=== PATIENT | male | born 1960 | race Caucasian/White ===

== ENCOUNTER 2020-05-20 12:39 | Emergency (ER) | payer OTHER, MEDICARE, MEDICAID, SELFPAY ==
--- NOTE | ~2020-05-20 | CT_ITS ---
CT head for stroke CLINICAL INFORMATION: Right arm weakness. COMPARISON: No prior CT scan available for comparison. TECHNIQUE: Department standard protocol. This CT examination was performed using dose optimization techniques as appropriate, variously including the following: *Automated exposure control *Adjustment of mA and/or kV according to patient size (this includes techniques or standardized protocols for targeted exams where dose is matched to indication/reason for exam; i.e. extremities or head) *Use of iterative reconstruction technique DLP: 735 mGy-cm FINDINGS: CEREBRAL HEMISPHERES: There is no evidence of intra-axial or extra-axial mass, hemorrhage or acute infarct. BRAIN PARENCHYMA: Deep white matter and paraventricular hypoattenuation, nonspecific; however, in this patient's age group most likely changes secondary to chronic ischemia/microvascular angiopathy. SUBDURAL SPACE: No bleed. BASAL GANGLIA AND PINEAL GLAND: Bilateral calcifications symmetric questionable significance. VENTRICLES: Symmetric and normal in size. CEREBELLUM AND BRAINSTEM: No space-occupying mass, hemorrhage or acute infarct. CEREBELLOPONTINE ANGLES: No lesion found. ORBITS: No intraorbital mass. VESSELS: Unremarkable SKULL BASE: Unremarkable INCLUDED SINUSES AT SKULL BASE: Clear SKULL AND SKIN: No fracture or bone lesion found. CT/CT head for stroke IMPRESSION: Asymmetric dense left MCA concerning for possible thrombosis versus vascular calcification. Patient is scheduled for CT angiogram which will help for further delineate this. Deep white matter and paraventricular hypoattenuation most likely chronic microvascular angiopathy. No intracranial bleed. This critical result was discussed with Dr. Goldman by telephone at 05/20/2020 1:24 PM and it was ascertained that the content and urgency of the report was understood at the time of direct communication.
--- NOTE | ~2020-05-20 | XR_ITS ---
EXAMINATION: XR CHEST CLINICAL INFORMATION: 59-year-old male patient with weakness. COMPARISON: Last chest x-rays on 10/19/2015 and 05/17/2017. TECHNIQUE: AP semierect view of the chest was obtained. The time of examination was 2:02 PM. FINDINGS: The heart is normal in size. There is mild uncoiling of the thoracic aorta as before. Pulmonary vascularity is normal. The lungs are clear showing no evidence of acute pulmonary parenchymal or pleural disease. XR/XR chest 1V IMPRESSION: No consolidating pneumonia.
--- NOTE | ~2020-05-20 | CT_ITS ---
EXAMINATION: CT ANGIOGRAM HEAD CT ANGIOGRAM NECK CLINICAL INFORMATION: Large vessel occlusion. Right arm weakness. COMPARISON: CT head from 05/20/2020. TECHNIQUE: Initial noncontrast manager intensive care imaging of the head and neck was performed. Comparison is made with noncontrast head CT from earlier today. Test bolus sequences followed by intravenous administration 75 mL of Omnipaque 350. Helical imaging was performed in the axial plane from the aortic arch to the skull vertex. Delayed postcontrast imaging of the head was also performed. The data was processed at the nuclear technologist's workstation for generation of MIP sequences. Angled MIPs and volume rendered reformatted images were also generated at an offline 3D workstation. Stenoses are assessed in accordance with NASCET criteria unless otherwise indicated. DLP: 1538 mGy-cm FINDINGS: CT Head: Small region of lost molina-white matter differentiation within the left precentral gyrus. There is no evidence of acute intracranial hemorrhage. Bilateral basal ganglia mineralization. A few foci of hypoattenuation in the periventricular and deep white matter are consistent with mild microangiopathy. Molina-white matter differentiation is preserved. Proportional prominence of the ventricles and sulcal spaces. No evidence for obstructive hydrocephalus. No abnormal mass effect or midline shift. No extra-axial fluid collections. No pathologic intra-axial enhancement or regional oligemia. No acute soft tissue or osseous abnormalities. Moderate right nasal septal deviation. Mild mucosal thickening of the paranasal sinuses. The patient is edentulous. The mastoid air cells and middle ear cavities are clear. CT Neck: The thyroid gland and remaining cervical soft tissues are within normal limits. No significant abnormalities of the cervical spine. CT Upper Chest: The visualized lung apices and upper mediastinum are within normal limits. Neck CTA: Aortic Arch: Normal contour and caliber. Two vessel branching pattern of the arch with left common carotid artery arising from the brachiocephalic trunk. Great Vessel Origins: No significant stenosis of the branch origins. Right Common Carotid Artery: Normal opacification without focal stenosis or occlusion. Cervical Right Internal Carotid Artery: Mild calcific atherosclerotic disease of the carotid bulb and proximal internal carotid artery without flow-limiting stenosis. Left Common and Internal Carotid Arteries: Normal opacification of the proximal and mid common carotid artery. Lipid rich atheromatous disease of the carotid bulb and proximal internal carotid artery causes complete occlusion of the proximal left internal carotid artery. The remainder of the cervical segment of the left ICA is nonopacified. Cervical Right Vertebral Artery: Co-dominant. Normal opacification without focal stenosis or occlusion. Cervical Left Vertebral Artery: Co-dominant. Normal opacification without focal stenosis or occlusion. Brain CTA: Intracranial Internal Carotid Arteries: The petrous and cavernous segments of the left ICA remain nonopacified. Partial reconstitution of the paraophthalmic and cervical segments of the left ICA. Normal contrast opacification of the petrous, cavernous, paraophthalmic, and supraclinoid segments of the right internal carotid artery. There is opacification of the bilateral proximal ophthalmic arteries. Right Anterior Cerebral Artery: Normal A1 segment. Normal opacification of the distal segments of the NELLIE. Left Anterior Cerebral Artery: Normal A1 segment. Normal opacification of the distal segments of the NELLIE. Anterior Communicating Artery: Normal. Right Middle Cerebral Artery: Normal opacification of the M1 segment of the MCA without focal stenosis or occlusion. Normal arborization of the distal segments. Left Middle Cerebral Artery: Normal opacification of the M1 segment of the MCA without focal stenosis or occlusion. There is occlusion of the distal M2 and M3 branch of the left MCA (image [id number]). Right Vertebral Artery: Normal opacification of the V4 segment. Normal opacification of the proximal segments of the posterior inferior cerebellar artery. Left Vertebral Artery: Normal opacification of the V4 segment. Normal opacification of the proximal segments of the posterior inferior cerebellar artery. Basilar Artery: Normal opacification without focal stenosis or occlusion. Normal appearance of the proximal superior cerebellar arteries. Right Posterior Cerebral Artery: Normal P1 segment. Normal posterior communicating artery. Normal opacification of the distal segments of the SWITCH REPAIRER. Left Posterior Cerebral Artery: Normal P1 segment. Normal opacification of the distal segments of the SWITCH REPAIRER. Normal opacification of the superior sagittal, straight, transverse, and sigmoid sinuses. CT/CT angio head neck stroke IMPRESSION: 1. Proximal occlusion of the left internal carotid artery. Reconstitution of the supraclinoid segment, likely from filling across the anterior communicating artery. 2. There is also occlusion of a distal M2 and M3 branch of the left MCA. 3. Small region of lost molina-white matter differentiation within the left precentral gyrus. No evidence of acute intracranial hemorrhage. Mild underlying microangiopathy. This critical result was discussed with Dr. Goldman at 13:45 on 05/20/2020 and it was ascertained that the content and urgency of the report was understood at the time of direct communication.
[2020-05-20 12:54] LABS: Glucose, Whole Blood 177 mg/dL (60-115)
--- NOTE | 2020-05-20 12:59 | ECG_ITS ---
Test Reason : STROKE Blood Pressure : / mmHG Vent. Rate : 081 BPM Atrial Rate : 081 BPM P-R Int : 168 ms QRS Dur : 086 ms QT Int : 368 ms P-R-T Axes : 036 017 014 degrees QTc Int : 427 ms Normal sinus rhythm Possible Left atrial enlargement Borderline ECG No significant changes when compared with the previous EKG of 17 may 2017 Referred By: Rojas Goldman Electronically Signed By:BROCK ROSE
[2020-05-20 13:06] VITALS: BP 198/117; PULSE 82; RESP 18; TEMP 36.8; O2SAT 99; BMI 23.1
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
--- NOTE | 2020-05-20 13:32 | PC.NURSE ---
called the carrie agronomy professor per dr padilla request
[2020-05-20] MEDS: iohexoL 350 MG/ML 100 ML INFUS..BTL IV (13:47)
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
[2020-05-20 13:51] LABS: MANUAL DIFF FLAG NO
[2020-05-20 13:53] LABS: Basophils Percent Auto 0.3 % (0-2); Eosinophils Absolute Auto 0.1 X10*3/uL (0.0-0.4); Eosinophils Percent Auto 0.8 % (0-4); Hematocrit 44.7 % (42-52); Hemoglobin 15.4 g/dl (14.0-18.0); Imm Gran Abs Auto 0.02 X10*3/uL (0.00-0.03); Imm Gran Pct Auto 0.3 % (0.0-0.4); Lymphocytes Absolute Auto 2.3 X10*3/uL (1.2-4.9); Lymphocytes Percent Auto 29.2 % (20-40); Mean Corpuscular HGB Conc 34.5 g/dl (31.0-36.0); Mean Corpuscular Hemoglobin 32.8 pg (27.0-33.0); Mean Corpuscular Volume 95.3 fL (80-98); Mean Platelet Volume 9.8 fL (9.4-12.4); Monocytes Absolute Auto 0.5 X10*3/uL (0.1-1.2); Monocytes Percent Auto 6.3 % (2-11); Neutrophils Absolute Auto 4.9 X10*3/uL (2.0-8.3); Neutrophils Percent Auto 63.1 % (45-73); Platelet Count 229 X10*3/uL (160-400); Red Blood Count 4.69 X10*6/uL (4.60-5.80); Red Cell Distribution Width 13.9 % (11.0-16.0); White Blood Count 7.7 X10*3/uL (4.8-10.8)
[2020-05-20 13:57] LABS: INTERNATIONAL NORM RATIO 0.9 (0.9-1.1); Prothrombin Time 11.2 SEC (10.8-13.0)
[2020-05-20 14:00] LABS: Partial Thromboplastin Time 36.2 SEC (24.1-38.0)
--- NOTE | 2020-05-20 14:00 | PC.NURSE ---
BP REMAINS ELEVATED, MD AWARE
[2020-05-20 14:01] LABS: Stroke Lab Use COMPLETE
[2020-05-20 14:16] LABS: Troponin-I High Sensitivity 4.9 ng/L (<3.5-35.0)
[2020-05-20 14:17] LABS: Alanine Aminotransferase 15 U/L (0-40); Albumin Level 4.8 g/dL (3.5-5.0); Alkaline Phosphatase 107 U/L (39-117); Anion Gap 13 (12-20); Aspartate Amino Transferase 15 U/L (5-37); Bilirubin Direct 0.3 mg/dL (0.0-0.5); Bilirubin Total 0.9 mg/dL (0.0-1.0); Blood Urea Nitrogen 12 mg/dL (9-16); Calcium 9.3 mg/dL (8.4-10.2); Carbon Dioxide 29 mmol/L (22-29); Chloride 99 mmol/L (96-108); Creatinine Clr Calc Pharmacy 76.4; Estimated Glomerular Filt Rate > 60; Glucose Random 195 mg/dL (60-115); Magnesium 2.2 mg/dL (1.6-2.6); Phosphorus 2.7 mg/dL (2.7-4.5); Potassium 4.3 mmol/L (3.3-5.1); Sodium 137 mmol/L (135-145); Total Protein 7.8 g/dL (6.5-8.0)
[2020-05-20 14:19] LABS: Ethanol < 10 mg/dL
[2020-05-20 14:22] LABS: Glucose Random 196 mg/dL (60-115)
[2020-05-20 14:24] VITALS: BP 210/120; PULSE 82
[2020-05-20 14:35] LABS: Thyroid Stimulating Hormone 1.99 uIU/mL (0.32-4.0)
[2020-05-20 14:42] LABS: Prothrombin Time Whole Bld POC 11.5 sec (11.1-13.5)
--- NOTE | 2020-05-20 14:44 | PC.NURSE ---
REPORT GIVEN TO [facility] RN. NO ISSUES UPON TRANSFER VIA EMS.
[2020-05-20 15:46] LABS: IDNOW Serial# 9DD0AD1C
[2020-05-20 15:47] LABS: COVID-19 Test Negative (Negative)
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
== END 2020-05-20 14:35 | disposition short-term general hospital (02) ==
PROVIDERS: Emergency Provider Emergency Medicine Emergency Medical Services; PCP Internal Medicine
DX: I63.9 Cerebral infarction, unspecified (principal); I65.22 Occlusion and stenosis of left carotid artery; R29.711 NIHSS score 11; Z20.822 Contact with and (suspected) exposure to COVID-19; Z87.891 Personal history of nicotine dependence; Z79.899 Other long term (current) drug therapy
CPT/HCPCS: 36415; 70450; 70496; 70498; 71045; 80048; 80076; 80320; 82550; 82947; 83735; 84100; 84443; 84484; 85025; 85610; 85730; 87635; 93005; 96360; 99285; Q9967

== ENCOUNTER 2020-06-29 09:18 | Outpatient (REF) | payer MEDICARE, MEDICAID, SELFPAY ==
[2020-06-29 10:16] LABS: MANUAL DIFF FLAG NO
[2020-06-29 10:32] LABS: Basophils Percent Auto 0.3 % (0-2); Eosinophils Absolute Auto 0.1 X10*3/uL (0.0-0.4); Eosinophils Percent Auto 1.4 % (0-4); Hematocrit 39.9 % (42-52); Hemoglobin 13.7 g/dl (14.0-18.0); Imm Gran Abs Auto 0.02 X10*3/uL (0.00-0.03); Imm Gran Pct Auto 0.2 % (0.0-0.4); Lymphocytes Percent Auto 39.4 % (20-40); Mean Corpuscular HGB Conc 34.3 g/dl (31.0-36.0); Mean Corpuscular Volume 93.2 fL (80-98); Mean Platelet Volume 10.1 fL (9.4-12.4); Monocytes Absolute Auto 0.9 X10*3/uL (0.1-1.2); Monocytes Percent Auto 8.9 % (2-11); Neutrophils Absolute Auto 5.1 X10*3/uL (2.0-8.3); Neutrophils Percent Auto 49.8 % (45-73); Platelet Count 228 X10*3/uL (160-400); Red Blood Count 4.28 X10*6/uL (4.60-5.80); Red Cell Distribution Width 13.4 % (11.0-16.0); White Blood Count 10.2 X10*3/uL (4.8-10.8)
[2020-06-29 10:33] LABS: Alanine Aminotransferase 44 U/L (0-40); Albumin Level 4.4 g/dL (3.5-5.0); Alkaline Phosphatase 165 U/L (39-117); Anion Gap 10 (12-20); Aspartate Amino Transferase 21 U/L (5-37); Bilirubin Total 1.1 mg/dL (0.0-1.0); Blood Urea Nitrogen 14 mg/dL (9-16); Calcium 9.4 mg/dL (8.4-10.2); Carbon Dioxide 35 mmol/L (22-29); Chloride 99 mmol/L (96-108); Cholesterol 112 mg/dL; Estimated Glomerular Filt Rate 60; Glucose Fasting 257 mg/dL (60-99); HDL Cholesterol 53 mg/dL; LDL Cholesterol Calculated 48 mg/dl; Potassium 4.4 mmol/L (3.3-5.1); Sodium 140 mmol/L (135-145); Total Protein 7.1 g/dL (6.5-8.0); Triglycerides 58 mg/dL
[2020-06-29 10:46] LABS: Glucose Urine UA >=1000 MG/DL (NEG); Leukocyte Esterase Urine NEG (NEG); Nitrite Urine NEG (NEG); Urine Blood TRACE (NEG); Urine Ketones NEG (NEG); Urine Protein NEG (NEG-TRACE)
[2020-06-29 10:49] LABS: Appearance Urine CLEAR; Color Urine YELLOW
[2020-06-29 10:56] LABS: TSH reflex Free T4 1.22 uIU/mL (0.32-4.0)
[2020-06-29 11:29] LABS: RBC Urine 0-2 /HPF (0); WBC Urine 0 /HPF (0-4)
[2020-06-29 11:39] LABS: Erythrocyte Sedimentation Rate 6 MM/HR (0-15)
[2020-06-29 11:43] LABS: Creatinine Urine 47.19 mg/dL
== END 2020-06-29 09:19 | disposition home or self-care (01) ==
LOC: HO.LAB 09:18
PROVIDERS: PCP Internal Medicine; Visit Provider Psychiatry & Neurology Neurology
DX: I63.9 Cerebral infarction, unspecified (principal); I10 Essential (primary) hypertension; E11.9 Type 2 diabetes mellitus without complications; K21.9 Gastro-esophageal reflux disease without esophagitis; E78.00 Pure hypercholesterolemia, unspecified; M19.90 Unspecified osteoarthritis, unspecified site; M25.512 Pain in left shoulder; M51.36 Other intervertebral disc degeneration, lumbar region
CPT/HCPCS: 36415; 80053; 80061; 81001; 82043; 84443; 85025; 85652

== ENCOUNTER 2020-07-03 09:12 | Outpatient (REF) | payer MEDICARE, MEDICAID, SELFPAY ==
--- NOTE | ~2020-07-03 | CT_ITS ---
EXAMINATION: CT ANGIOGRAM OF THE HEAD CT ANGIOGRAM OF THE NECK CLINICAL INFORMATION: Prior cerebral infarct. COMPARISON: CTA of the head and neck and CT scan of the head 05/20/2020. TECHNIQUE: A noncontrast CT scan of the head was obtained. Test bolus series followed by intravenous administration 70 mL of Omnipaque 350. Helical imaging was performed in the axial plane from the mediastinum to the skull vertex. A delayed postcontrast CT scan of the head was also obtained. The degree of stenosis is based off NASCET criteria. The data was processed at the staff nuclear medicine technologist workstation for generation of MIP images. Three-dimensional volume rendered reformatted images were also generated at an offline 3-D workstation. This CT examination was performed using dose optimization techniques as appropriate, variously including the following: *Automated exposure control *Adjustment of mA and/or kV according to patient size (this includes techniques or standardized protocols for targeted exams where dose is matched to indication/reason for exam; i.e. extremities or head) *Use of iterative reconstruction technique DLP: 2644 mGy-cm. FINDINGS: CT Head: The study demonstrates evolution of the infarct in the left frontoparietal region. There is mild cortical enhancement, most consistent with luxury perfusion along the superior aspect of the region of infarction. There is no evidence of acute hemorrhage. There is adjacent ex-vacuo dilation of the posterior body and trigone of the left lateral ventricle. No new territorial infarcts are demonstrated. There is no evidence of hemorrhage elsewhere. No abnormal mass-effect or midline shift is seen. Elsewhere, urbina to white matter differentiation is well preserved. No extra-axial fluid collections are identified. There is no other abnormal enhancement. The ventricles and sulci are slightly commensurately prominent consistent with mild diffuse volume loss. There are bilateral basal ganglia calcifications. There are a few areas of low-attenuation elsewhere within the periventricular and subcortical white matter, consistent with chronic microvascular ischemic changes. There are no acute osseous findings. The soft tissues are unremarkable. The patient is edentulous in the maxilla. A residual dental root is seen in the anterior left mandible. A torus mandibularis is seen anteriorly on the right, which is unchanged. The mastoid air cells and visualized portions of the paranasal sinuses are well-aerated. CTA Neck: The aortic arch has a classic configuration. The subclavian arteries are patent bilaterally. There are lipid-rich atheromatous changes in the left common carotid artery without significant calcification proximally. The right common carotid artery is patent. There are extensive atheromatous calcifications at the left carotid bifurcation, demonstrated on prior imaging. There is minimal atheromatous calcification on the right. The right cervical internal carotid artery is patent with uniform caliber. The study redemonstrates complete occlusion of the left cervical internal carotid artery, similar compared to prior imaging. The origins of both vertebral arteries are well seen and appear normal. The origins of both vertebral arteries are well demonstrated. The vertebral arteries are codominant, and are patent throughout their cervical course extending intradurally. Nonvascular: There are emphysematous changes in the lungs bilaterally. There is apical pleural scarring on the right. The right lobe of the thyroid gland is slightly more prominent compared to the left, but attenuation appears uniform. There is no cervical lymphadenopathy. There are no significant spondylitic changes in the cervical spine. CTA Head: No flow is demonstrated in the petrous or cavernous segments of the left internal carotid artery. There is opacification of the right internal carotid artery. There is reconstitution of flow in the supraclinoid left internal carotid artery from collateral circulation from the right side. Contrast is now noted extending distal to the region of the occlusion of the sylvian left middle cerebral artery, with improved arborization of the branches of the left middle cerebral artery. The right middle and bilateral anterior cerebral arteries demonstrate normal caliber with no evidence of focal stenosis, aneurysm or vascular malformation. There is normal arborization of the right middle cerebral artery branches. The anterior communicating artery is normal. In the posterior circulation, the vertebral arteries are codominant. The vertebral arteries intradurally have normal caliber. The basilar artery appears normal. The posterior cerebral arteries have normal caliber. The venous sinuses opacify normally. CT/CT angio head neck IMPRESSION: CT HEAD AND NECK: 1. The study demonstrates evolution of the infarct in the left frontoparietal region. There appears to be luxury perfusion changes on the current study. There is no hemorrhagic transformation. There are no new areas of territorial infarction. 2. There are emphysematous changes in the lungs. There is no cervical lymphadenopathy. CTA HEAD AND NECK: 1. The study redemonstrates complete occlusion of the cervical left internal carotid artery, with reconstitution in the left supraclinoid region from collateral vessels. 2. Contrast is now noted in the left middle cerebral artery, distal to the region of the occlusion that was demonstrated on prior imaging. 3. There are no new areas of focal stenosis, and there are no aneurysms or vascular malformations.
[2020-07-03] MEDS: iohexoL 350 MG/ML 100 ML INFUS..BTL IV (11:01)
== END 2020-07-03 09:13 | disposition home or self-care (01) ==
LOC: HO.CT 09:12
PROVIDERS: Visit Provider Psychiatry & Neurology Neurology
DX: I63.9 Cerebral infarction, unspecified (principal)
CPT/HCPCS: 70496; 70498; Q9967

== ENCOUNTER 2020-08-15 07:59 | Outpatient (RCR) | payer MEDICARE, MEDICAID, SELFPAY ==
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
== END 2021-07-22 16:05 | disposition home or self-care (01) ==
LOC: HO.SH 07:59
PROVIDERS: Visit Provider Internal Medicine
DX: R47.01 Aphasia (principal); R47.1 Dysarthria and anarthria
CPT/HCPCS: 92523

== ENCOUNTER 2020-08-17 11:00 | Outpatient (RCR) | payer MEDICARE, MEDICAID, SELFPAY ==
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
--- NOTE | 2020-09-20 13:14 | MHC.OT.DC ---
[address] [phone] F: [phone] Occupational Therapy Discharge Note Provider: Dr Mcmillan Diagnosis: Right Hemiparesis due to CVA Date of Evaluation: 07/03/20 Date of Discharge: 09/20/20 Treatments to Date: 11 Discharge Status: Improved Function Independent with HEP Patient Elected to Stop Discharge Summary: Perez was referred to OT for left UE strengthening and coordination s/p stroke. He has reported improvements every day. He still has difficulty with isolating wrist and digits with activities, but overall good use of left hand to assist w/ daily activities. He has not returned for follow up OT, but has started physical therapy. Electronically Signed By: Manisha Lopez OTR/L Please Sign and return to therapist, thank you for your referral.
== END 2020-09-20 13:00 | disposition home or self-care (01) ==
LOC: HO.OT 11:00
PROVIDERS: PCP Internal Medicine; Visit Provider Internal Medicine
DX: I69.351 Hemiplegia and hemiparesis following cerebral infarction affecting right dominant side (principal)
CPT/HCPCS: 97110; 97112; 97166; 97530

== ENCOUNTER 2020-10-01 10:00 | Outpatient (RCR) | payer OTHER, SELFPAY ==
--- NOTE | 2020-09-04 12:41 | MHC.PT.EP ---
[facility] [place] Office [place] Office [place] Office [address] Eben Lopez [address] [phone] F: [phone] F: [phone] F: [phone] F: [phone] Physical Therapy Plan of Care Date of Evaluation: Date of Surgery: Diagnosis: CVA right side Assessment: The patient arrives s/p a left CVA. He has right sided weakness in his UE and LE more pronounced in his LE. He has functional LE strength but notable decrease in coordination and movement/speed. Pt reports poor balance and poor activity tolerance. He will benefit from balance retraining, LE strength, and coordination activities to help restore PLOF. Frequency and Duration: The patient will be seen 2x/week x 4 weeks Short Term Goals: 1. Pt to be able to go from sit to stand with good trunk control for immediate standing balance. 2. Pt to be able to static stand x 2 min to demonstrate improved static balance for personal hygiene. Yarn Dry Room Worker Goals: 1. The patient to be able to negotiate community obstacles such as curbs, ramps and open spaces without LOB for 100 feet. 2. For the patient to be able to functionally move in all planes and directions without provocation of dizziness to show return to PLOF. Treatment Plan: Modalities to reduce pain, spasms and effusion. Manual therapy to restore motion and function. Therapeutic exercise to improve strength and flexibility. Neuromuscular re-education for posture and balance. Therapeutic activities to return to functional activities of daily living. Electronically signed by: Serenity Choe PT DPT Please sign and return to therapist. Thank you for your referral.
== END 2020-10-01 13:00 | disposition home or self-care (01) ==
LOC: HO.PT 10:00
PROVIDERS: PCP Internal Medicine; Visit Provider Internal Medicine
DX: I69.351 Hemiplegia and hemiparesis following cerebral infarction affecting right dominant side (principal); I63.9 Cerebral infarction, unspecified
CPT/HCPCS: 97110; 97112; 97162